=== PATIENT | male | born 1995 | race Caucasian/White ===

== ENCOUNTER 2020-02-17 08:27 | Emergency (ER) | payer BC, SELFPAY ==
--- NOTE | ~2020-02-17 | XR_ITS ---
XR chest 2V DATE: 02/17/2020 09:14 INDICATION: Chest tightness, right greater than left TECHNIQUE: 2 views COMPARISON: 04/14/2019 2 view chest FINDINGS: Normal heart size. No hilar or mediastinal enlargement. No pulmonary infiltrate or consolid ation, pleural effusion or pulmonary vascular congestion or pneumothorax. IMPRESSION: No active cardiopulmonary disease Reviewed, dictated and finalized at location A.
[2020-02-17 08:39] VITALS: BP 142/85; PULSE 80; RESP 18; TEMP 36.9; O2SAT 98
--- NOTE | 2020-02-17 08:44 | ECG_ITS ---
Measurements Intervals [place] Rate: 75 P: 38 [place]: 135 QRS: 53 QRSD: 94 T: 4 QT: 378 QTc: 423 Interpretive Statements SINUS RHYTHM INCOMPLETE RIGHT BUNDLE BRANCH BLOCK ST ELEVATION IN ANTEROLAT/HIGH LAT LEADS- PROBABLY EARLY REPOLARIZATION BORDERLINE ST-T WAVE ABNORMALITY- INFERIOR LEADS BASELINE ARTIFACT- II, III, AVL, AVF BORDERLINE ECG Electronically Signed On 02-17-2020 9:03:08 CDT by Kennedy Riggs D.O.
--- NOTE | 2020-02-17 08:44 | ED.GENADULT ---
HPI - General Adult General Chief complaint: Unspecified Stated complaint: tingling arms chest pain Time Seen by Provider: 02/17/20 08:44 Source: patient and RN notes reviewed Mode of arrival: ambulatory Limitations: no limitations History of Present Illness HPI narrative: Patient states that he had some numbness and tingling in his left arm. Sometimes it happened shortly after awakening. Then a had happened while he was walking. Today he had some chest tightness. He has no associated symptoms such as shortness of breath diaphoresis nausea vomiting. He has never had anything like this happen before. He has no major medical problems that would contribute to coronary disease except morbid obesity. MD complaint: Chest tightness Onset (ago): day(s) (3) Location: chest and upper extremity (left arm) Severity: mild Quality: dull Pain Consistency: intermittent Relieving factors: none Exacerbating factors: none Associated symptoms: chest pain Treatments prior to arrival: none Related Data Home Medications Medication Instructions Recorded Confirmed quetiapine 200 mg PO DAILY 04/14/19 02/17/20 fluoxetine 20 mg PO DAILY 02/17/20 02/17/20 fluoxetine 40 mg PO DAILY 02/17/20 02/17/20 Allergies Allergy/AdvReac Type Severity Reaction Status Date / Time No Known Allergies Allergy Verified 04/14/19 13:16 Review of Systems Review of Systems: All systems reviewed & are unremarkable except as noted in HPI and below Constitutional: Constitutional: Reports no additional constitutional complaints Eyes: Eyes: Reports no additional eye complaints ENT: Reports system reviewed and no additional complaints, except as documented Cardiovascular: Cardiovascular: Reports no additional cardiovascular complaints, Denies rapid heart rate and Denies slow heart rate Respiratory: Respiratory: Denies chest congestion, Denies cough, Denies dyspnea and Denies wheezing Gastrointestinal: Gastrointestinal: Reports no additional gastrointestinal complaints, Denies nausea and Denies vomiting Genitourinary: Genitourinary: Reports no additional male genitourinary complaints Musculoskeletal: Musculoskeletal: Reports no additional musculoskeletal complaints Integumentary/Breasts: Skin/Breast: Reports system reviewed and no additional complaints, except as docu Neurologic: Reports system reviewed and no additional complaints, except as documented Psychiatric: Psychiatric: Reports no additional psychiatric complaints Endocrine: Endocrine: Reports no additional endocrine complaints Hematologic/Lymphatic: Hematologic/Lymphatic: Reports no additional hematologic/lymphatic complaints [facility] Past Medical History Medical History (Updated 02/17/20 @ 10:40 by Gino Knott MD) Anxiety Surgical History Surgical History (Updated 02/17/20 @ 10:40 by Gino Knott MD) No pertinent past surgical history Social History Social History (Updated 02/17/20 @ 10:41 by Gino Knott MD) Smoking status: Never smoker Alcohol intake: never Substance use: never Living arrangements: with family Gender identity (if verbalized by the patient): Male Exam Const: General: healthy appearing, no acute distress and alert Nutritional Appearance: well nourished and obese morbidly obese Orientation/consciousness: patient oriented x3 HENMT: Head: normal to inspection Face and sinus: normal facial exam Eyes: Conjunctivae: conjunctivae normal Pupils: Equal, round and reactive pupils present EOM: EOMs intact bilaterally Neck: Neck: normal visual inspection Resp: Effort & Inspection: normal respiratory effort Auscultation: clear to auscultation bilaterally Cardio: Rate: regular rate Rhythm: regular rhythm GI: GI Palp: Yes Soft to palpation and No Tenderness to palpation present (GI) Auscultation: normal bowel sounds Back/Spine/Pelvis: Cervical Spine: cervical ROM normal Thoracic/Lumbar Spine: thoraco-lumbar ROM normal Skin: General ski
[2020-02-17 09:04] LABS: Basophils Absolute Auto 0.04 K/mm3 (0.00-0.10); Basophils Percent Auto 0.5 % (0.0-1.0); Eosinophils Absolute Auto 0.16 K/mm3 (0.02-0.50); Hematocrit 44.2 % (40.0-54.0); Hemoglobin 15.1 g/dL (14.0-18.0); Immature Granulocyte Absolute 0.02 K/mm3 (0.00-0.00); Immature Granulocyte Percent A 0.2 % (0.0-0.0); Lymphocytes Absolute Auto 2.22 K/mm3 (1.10-4.50); Lymphocytes Percent Auto 27.2 % (18.0-42.0); Mean Corpuscular HGB Conc 34.2 g/dL (32.0-36.0); Mean Corpuscular Hemoglobin 29.2 pg (27.0-31.0); Mean Corpuscular Volume 85.3 fL (78.0-102.0); Mean Platelet Volume 9.2 fl (8.7-11.0); Monocytes Absolute Auto 0.55 K/mm3 (0.10-0.90); Monocytes Percent Auto 6.7 % (2.0-11.0); Neutrophils Absolute Auto 5.2 K/mm3 (1.7-7.2); Neutrophils Percent Auto 63.4 % (50.0-70.0); Platelet Count Result 305 K/mm3 (150-420); Red Blood Count 5.18 M/mm3 (4.70-6.10); Red Cell Distribution Width 12.3 % (11.6-14.4); White Blood Count 8.2 K/mm3 (4.8-10.8)
[2020-02-17 09:17] VITALS: BP 157/83; PULSE 74; RESP 20; O2SAT 98
[2020-02-17 09:27] LABS: Troponin I < 0.02 ng/mL (0.00-0.056)
[2020-02-17 09:27] LABS: Magnesium 1.8 mg/dL (1.8-2.4)
[2020-02-17 09:29] LABS: CRP 0.8 mg/dL (0.0-0.9); Thyroid Stimulating Hormone 0.87 uIU/mL (0.36-3.74)
[2020-02-17 09:29] LABS: Alanine Aminotransferase 54 U/L (16-63); Alkaline Phosphatase 71 U/L (46-116); Anion Gap 9 mmol/L (8-16); Aspartate Amino Transferase 19 U/L (15-37); Bilirubin,Total 0.5 mg/dL (0.00-1.00); Blood Urea Nitrogen 10 mg/dL (7-18); Calcium 9.4 mg/dL (8.5-10.1); Carbon Dioxide 25 mmol/L (21-32); Chloride 103 mmol/L (98-108); Estimated CRCL calculation 155 ml/min; Estimated Glomerular Filt Rate > 60; Glucose 101 mg/dL (70-99); Osmolality Calculated 283 mOsm/kg (285-295); Sodium 137 mmol/L (136-145); Total Protein 7.5 g/dL (6.4-8.2)
[2020-02-17 09:46] VITALS: BP 101/57; PULSE 78; RESP 18; TEMP 36.7; O2SAT 99
== END 2020-02-17 10:01 | disposition home or self-care (01) ==
PROVIDERS: Emergency Provider Emergency Medicine; PCP Internal Medicine
DX: R07.89 Other chest pain (principal)
CPT/HCPCS: 36415; 71046; 80053; 83735; 84443; 84484; 85025; 86140; 93005; 99284

== ENCOUNTER 2021-11-04 16:00 | Outpatient (CLI) | payer BC, SELFPAY ==
--- NOTE | 2021-11-04 16:28 | ECG_ITS ---
Measurements Intervals [place] Rate: 79 P: 44 [place]: 137 QRS: 29 QRSD: 94 T: 2 QT: 376 QTc: 432 Interpretive Statements SINUS RHYTHM POSSIBLE RIGHT VENTRICULAR CONDUCTION DELAY [RSR (QR) IN V1/V2] NONSPECIFIC T-WAVE ABNORMALITY DIFFUSE J-POINT ELEVATION PROBABLY EARLY REPOLARIZATION ABNORMALITY BORDERLINE ECG COMPARED TO ECG 02/17/2020 08:59:06 NO SIGNIFICANT CHANGES Electronically Signed On 11-04-2021 17:38:24 CDT by Homar Moreno M.D.
== END 2021-11-04 16:01 | disposition home or self-care (01) ==
LOC: CHSCARD 16:08
PROVIDERS: PCP Internal Medicine; Visit Provider Internal Medicine
DX: R94.31 Abnormal electrocardiogram [ECG] [EKG] (principal)
CPT/HCPCS: 93005